=== PATIENT | female | born 1955 | race Caucasian/White ===

== ENCOUNTER → 2024-01-21 10:10 | Outpatient (REF) | payer MEDICARE, SELFPAY ==
--- NOTE | 2024-01-21 11:01 | PN.DIAED06 ---
Meal Plans - Regular
- Meal Plan
Diabetic Meal Plan Name: 1500 calories
Breakfast - Total Carbohydrate (grams): 45
Breakfast - Starch Carbohydrate: 0
Breakfast - Fruit Carbohydrate: 0
Breakfast - Milk Carbohydrate: 0
Breakfast - Nonstarchy Vegetables: Yes
Breakfast - Meat/Protein: 1
Breakfast - Fat: 2
Morning Snack - Total Carbohydrate (grams): 15
Morning Snack - Starch Carbohydrate: 0
Morning Snack - Fruit Carbohydrate: 0
Morning Snack - Milk Carbohydrate: 0
Morning Snack - Nonstarchy Vegetables: Yes
Morning Snack - Meat/Protein: 0.5
Morning Snack - Fat: 0
Lunch - Total Carbohydrate (grams): 30
Lunch - Starch Carbohydrate: 0
Lunch - Fruit Carbohydrate: 0
Lunch - Milk Carbohydrate: 0
Lunch - Nonstarchy Vegetables: Yes
Lunch - Meat/Protein: 2
Lunch - Fat: 1
Afternoon Snack - Total Carbohydrate (grams): 15
Afternoon Snack - Starch Carbohydrate: 0
Afternoon Snack - Fruit Carbohydrate: 0
Afternoon Snack - Milk Carbohydrate: 0
Afternoon Snack - Nonstarchy Vegetables: Yes
Afternoon Snack - Meat/Protein: 0.5
Afternoon Snack - Fat: 0
Dinner - Total Carbohydrate (grams): 30
Dinner - Starch Carbohydrate: 0
Dinner - Fruit Carbohydrate: 0
Dinner - Milk Carbohydrate: 0
Dinner - Nonstarchy Vegetables: Yes
Dinner - Meat/Protein: 2
Dinner - Fat: 1
Evening Snack - Total Carbohydrate (grams): 15
Evening Snack - Starch Carbohydrate: 0
Evening Snack - Fruit Carbohydrate: 0
Evening Snack - Milk Carbohydrate: 0
Evening Snack - Nonstarchy Vegetables: Yes
Evening Snack - Meat/Protein: 0
Evening Snack - Fat: 0
--- NOTE | 2024-01-21 11:11 | PN.DIAED02 ---
Referral
Referred For: Medical Nutrition Therapy, Self-Blood Glucose Monitoring
PHI Release Authorization Form Signed: Yes
Demographic
(1) Type 2 diabetes mellitus
Status: Acute Code(s): E11.9 - Type 2 diabetes mellitus without complications
Patient's primary language-: Hungarian
- Social
Primary Support Person: Self & spouse
Primary Care Takers: Self
Living Arrangements: Self & spouse
Glycemic Control
- Blood Glucose Monitoring Assessment
Date: 01/21/24
Blood glucose monitoring at home: No
Monitor Brands: [employer] (Contour Next EZ)
Frequency: 2x per day
Time: fasting, after breakfast, after lunch, after dinner
- Hemoglobin A1c
Date: 01/01/24
A1C Percentage (%): 7.3 (6.9%- 10/02/22)
Care Plan
- Education Needs
Patient Education Needs: Medication, Monitoring, Physical activity, Nutritional management
Recommended Diabetes Training Program based on assessment: Individual Appointment
- Plan of Care
Plan of Care:
Caitie in today for glucometer and nutrition counseling as a 'holdover' for May 2024 outpt DSME classes. Most recent A1C 7.3% (6.9% 10/02/22), taking Metformin 500 mg QD with dinner. Initially some GI issues but they have resolved. She was on hold
with M/C at the onset of the appointment asking for preferred glucometer. Provided with and instructions given on Contour Next EZ glucometer. Good return demonstration with result 284 mg/dl 1 1/2 hr post B. Aware to test 2x/day, FBS and 2 hr after
one meal/day, handout on pattern and expected results given. Aware of proper testing technique and to rotate sites. Provided with a log sheet to record her results. Suggest she contact her PCP if BS results are elevated. She has been getting
information from the internet, re-directed her to the ADA website for accurate information. 5'3', 209#, provided with 1500 danelle meal plan and 2 week menu selection. Reviewed macronutrients and role each has on blood sugar/metabolism. She has
participated in [employer] in the past and plans to start again. Will send information in April for her to attend the outpt DSME classes.
== END ==
LOC: DES 10:10
PROVIDERS: ATTENDING PHYSICIAN Physician Assistant Medical
DX: E11.9 Type 2 diabetes mellitus without complications (principal)
CPT/HCPCS: 99078

== ENCOUNTER → 2024-01-31 12:16 | Outpatient (REF) | payer MEDICARE, SELFPAY | LOC: RAD 12:16 | PROVIDERS: ATTENDING PHYSICIAN Physician Assistant Medical | DX: R05.1 Acute cough (principal) | CPT/HCPCS: 71046 ==

== ENCOUNTER → 2024-06-01 15:47 | Outpatient (REF) | payer MEDICARE, SELFPAY ==
--- NOTE | 2024-04-27 12:26 | PN.DIAED02 ---
Referral
DSME Class Series Code: [id number]
Referred For: Diabetes Self-Management Training
PHI Release Authorization Form Signed: Yes
Patient Problems:
Current Active Problems
Problem Status Onset
Type 2 diabetes mellitus
Demographic
(1) Type 2 diabetes mellitus
Status: Acute Code(s): E11.9 - Type 2 diabetes mellitus without complications
Patient's primary language-: Serbian
Education: Some college
Occupation: Retired
- Social
Primary Support Person: Self & spouse
Primary Care Takers: Self
Living Arrangements: Self & spouse
- Learning Methods
Preferred Method: Reading, Lecture/audio, Hands-on demonstration, Video, Group discussion
Barriers to Learning: None
Glycemic Control
- Blood Glucose Monitoring Assessment
Date: 04/27/24
Monitor Brands: [employer] (Contour Next One)
Frequency: 2x per day (every other day as A1C now 6.6% and M/C pays for one test strip/day)
Time: fasting, after breakfast, after lunch, after dinner
- Hemoglobin A1c
Date: 03/06/24
A1C Percentage (%): 6.6 (7.3% 01/01/24)
Medical History of Diabetes
Previous Diabetes Education: No
How long ago?: 4-6 mo. ago (seen as holdover in December2023)
Previous visit with Dietitian: No
Complications/Comorbidity/Specialist: Hypertension, Other / symptoms (sexual)
Measures
- Anthropometrics
Height: 5 ft 3 in
Actual Weight: 199 lb 2 oz (209# (01/21/24))
- Blood Pressure / Pulse
Blood pressure: 135/94
- Diabetes Management
Medical Management for Diabetes: Complete physical exam (01/2024), Dental exam (01/2024), Dilated eye exam (06/2023), Flu Vaccination (06/2023), Pneumonia vaccination (03/17/23), Other (Covid 19 vaccines- 11/22/20,07/06/21,12/13/20,12/30/21)
Self-Care
- Tobacco Usage
Do you now, or have you ever smoked?: Current every day smoker
Amount (per day): 1/2 pack per day (10/day. States she is trying to cut back.)
- Alcohol & Drugs Usage
Drinks Alcohol: Yes
Amount/day: Rarely (1 every few months)
- Meals & Dining
Meals & Dining: Patient skips meals: No, Food Intolerance / Allergy: No, Cultural / Sabianist Dietary Needs: No
Primary Food Chip Machine Operator: Self
Primary Hand Ironer: Self
Dining Out Frequency: Rarely
- Physical Activity
Physical Limitation: Yes (painful r. shoulder)
Patient participates in physical Activity: No
- Patient-Self Assessment
Diabetes Knowledge: Poor
Feelings About Diabetes: Guilt
General Health: Good
Importance of Health: Extremely
Stress Level: Low
Diabetes Interferes With:: Nothing
Depression Survey Score: 5
Care Plan
- Education Needs
Patient Education Needs: Diabetes disease process, Chronic complications, Acute complications, Medication, Monitoring, Physical activity, Psychosocial Adjustment, Nutritional management, Goal setting & problem solving
Recommended Diabetes Training Program based on assessment: Outpatient Diabetes Education Program
- Plan of Care
Plan of Care:
Caitie in today to register for outpt DSME classes. She was seen as a holdover 01/21/24. At that time, provided with a Contour next EZ glucometer, she is not having any issues testing. States M/C pays for 1 strip/day. Recommend testing [place] other
day, twice a day so that she gets the benefit of testing and will not have any out of pocket expenses. A1C currently 6.6%, down from 7.3%. She was given a meal plan and has lost 10#. She does not exercise, discussed and she plans to rejoin silver
sneakers and attend [facility] in [place] 2x/week for 30-60 minutes. She is taking Metformin 500 mg QD with dinner. Goals established and directions to classroom given.
--- NOTE | 2024-04-27 12:51 | PN.DIAED04 ---
Education Record
- Education Record
Class Attended: Class 1 (pre registration 04/27/24 for outpt DSME classes starting 06/01/24)
DSME Class Series Code: [id number]
Instructor: Registered Nurse (Jannie Corbett, RN, BSN, [facility])
Class Curriculum:
Outpatient Diabetes Education Program:
Initial Assessment (45 minutes)
Individualized assessment
Develop personal strategies to promote health and behavior change
Development of diabetes self-management support plan
Class Length (mins): 45
Pre-Program Knowledge: No knowledge
Pre-Test Score (%): 40
Goals
- Goal 1
Being Active: Exercise more often (Rejoin rita sneakers, attend 2/week for 30-60 minutes. Participate in aerobics class, light weights and treadmill.)
Goals To Be Evaluated: Exercise more often
- Goal 2
Healthy Eating: Make better food choices, Reduce portion sizes
Goals To Be Evaluated: Make better food choices. Reduce portion sizes
- Goal 3
Monitoring: Take blood sugar in the prescribed pattern
Goals To Be Evaluated: Test BG-prescribed times
--- NOTE | 2024-06-02 14:10 | PN.DIAED14 ---
This is to notify you that your patient with diabetes, MELINA MACDONALD ( 1955), has enrolled in our diabetes self-management classes that are being held at [facility].
These classes will include an introduction to diabetes, diet, medication, exercise and prevention of complications. At the end of our class series, you will receive a report of your patient's participation and progress for your records.
Please contact me at the Diabetes Center, , if there is any particular information regarding your patient that might be helpful to me.
Sincerely,
ROHIT Rai-, [facility]
Director
Diabetes & Nutrition Services
== END ==
LOC: DES 15:47
PROVIDERS: ATTENDING PHYSICIAN Physician Assistant Medical
DX: E11.9 Type 2 diabetes mellitus without complications (principal)
CPT/HCPCS: 99078

== ENCOUNTER → 2024-06-08 12:00 | Outpatient (REF) | payer MEDICARE, SELFPAY ==
--- NOTE | 2024-06-09 10:35 | PN.DIAED04 ---
Education Record
- Education Record
Class Attended: Class 2
DSME Class Series Code: [id number]
Instructor: Registered Dietitian (Raegan Knapp, RD, LDN, CDE)
Class Length (mins): 120
== END ==
LOC: DES 12:00
PROVIDERS: ATTENDING PHYSICIAN Physician Assistant Medical
DX: E11.9 Type 2 diabetes mellitus without complications (principal)
CPT/HCPCS: 99078

== ENCOUNTER → 2024-06-15 12:00 | Outpatient (REF) | payer MEDICARE, SELFPAY | LOC: DES 12:00 | PROVIDERS: ATTENDING PHYSICIAN Physician Assistant Medical | DX: E11.9 Type 2 diabetes mellitus without complications (principal) | CPT/HCPCS: 99078 ==

== ENCOUNTER → 2024-06-22 12:00 | Outpatient (REF) | payer MEDICARE, SELFPAY | LOC: DES 12:00 | PROVIDERS: ATTENDING PHYSICIAN Physician Assistant Medical | DX: E11.9 Type 2 diabetes mellitus without complications (principal) | CPT/HCPCS: 99078 ==

== ENCOUNTER → 2024-07-01 13:12 | Outpatient (REF) | payer MEDICARE, SELFPAY | LOC: WDC 13:12 | PROVIDERS: ATTENDING PHYSICIAN Obstetrics & Gynecology Gynecology; FAMILY PHYSICIAN Physician Assistant Medical | DX: Z12.31 Encounter for screening mammogram for malignant neoplasm of breast (principal) | CPT/HCPCS: 77063; 77067 ==

== ENCOUNTER → 2024-08-03 12:20 | Outpatient (REF) | payer MEDICARE, SELFPAY | LOC: DES 12:20 | PROVIDERS: ATTENDING PHYSICIAN Physician Assistant Medical | DX: E11.9 Type 2 diabetes mellitus without complications (principal) | CPT/HCPCS: 99078 ==

== ENCOUNTER → 2024-09-01 12:59 | Outpatient (REF) | payer MEDICARE, SELFPAY | LOC: RAD 12:59 | PROVIDERS: ATTENDING PHYSICIAN Internal Medicine Critical Care Medicine; FAMILY PHYSICIAN Physician Assistant Medical | DX: F17.210 Nicotine dependence, cigarettes, uncomplicated (principal) | CPT/HCPCS: 71271 ==

== ENCOUNTER 2024-10-26 06:25 | Day surgery (SDC) | payer MEDICARE, SELFPAY ==
[2024-10-26 07:51] LABS: Glucose - Point of Care 104 mg/dl (70-99)
== END 2024-10-26 09:24 | disposition home or self-care (01) ==
LOC: GI 06:25
PROVIDERS: ATTENDING PHYSICIAN Student in an Organized Health Care Education/Training Program
DX: Z12.11 Encounter for screening for malignant neoplasm of colon (principal); D12.2 Benign neoplasm of ascending colon; D12.3 Benign neoplasm of transverse colon; D12.4 Benign neoplasm of descending colon; D17.5 Benign lipomatous neoplasm of intra-abdominal organs; K57.30 Diverticulosis of large intestine without perforation or abscess without bleeding; K62.89 Other specified diseases of anus and rectum; K64.0 First degree hemorrhoids; K64.4 Residual hemorrhoidal skin tags; Z86.0101 Personal history of adenomatous and serrated colon polyps; Z98.0 Intestinal bypass and anastomosis status
CPT/HCPCS: 45385; 88305; 82962

== ENCOUNTER → 2025-08-02 14:44 | Outpatient (REF) | payer MEDICARE, SELFPAY | LOC: MRI 14:44 | PROVIDERS: ATTENDING PHYSICIAN Student in an Organized Health Care Education/Training Program; FAMILY PHYSICIAN Physician Assistant Medical | DX: K76.0 Fatty (change of) liver, not elsewhere classified (principal) | CPT/HCPCS: 74181; 76391 ==